=== PATIENT | female | born 1985 | race Caucasian/White ===

== ENCOUNTER → 2021-01-17 | Outpatient (CLI) | payer BC ==
[~2021-01-17] MED LIST: IBU600 MG PO; PERCOCET 325 MG1 TA2 PO; PRENATAL MVI
== END ==
LOC: ZCOL.LAB
DX: Z20.822 Contact with and (suspected) exposure to COVID-19 (principal)

== ENCOUNTER 2021-01-20 08:34 | Outpatient (CLI) | payer BC ==
[~2021-01-20] VITALS: Ht 170.2 cm; Wt 110.9 kg
--- NOTE | 2021-01-20 08:45 | NUR ---
Pt arrives on unit ambulatory with spouse. States LOF since 399 with intermittent ctx. Denies vaginal bleeding and reports GFM. Changed into clean gown. EFM and toco applied. Bedside US performed by Dr. Ching to confirm breech presentation. Breech presentation confirmed. Amniotest negative. SVE per this RN /-3. LAWRENCE. Dr. Ching remains on unit and notified. Orders to observe x1 hour and reassess. Admission assessment completed. Pt updated on POC. Bed locked in low position. Call light within reach. No questions or concerns at this time.
[2021-01-20] MEDS ORDERED: PRENATAL MVI (09:17)
[2021-01-20 09:50] VITALS: BP 143/92; PULSE 78; TEMP 97.7
[2021-01-20 10:04] VITALS: BP 138/90; PULSE 87
== END 2021-01-20 10:05 | disposition home or self-care (01) ==
LOC: LDRO 08:34
DX: O62.9 Abnormality of forces of labor, unspecified (principal); Z3A.36 36 weeks gestation of pregnancy

== ENCOUNTER 2021-01-20 18:59 | Inpatient (IN) | payer BC ==
[2021-01-20] VITALS (11 sets, daily range): BP systolic 119–140; BP diastolic 62–92; PULSE 90–103; TEMP 97.6
[~2021-01-20] VITALS: Ht 170.2 cm; Wt 110.9 kg
[~2021-01-20 18:59] MED LIST changes: -IBU600 MG PO; -PERCOCET 325 MG1 TA2 PO
[2021-01-20 21:38] LABS: BASO % 0.3 % (0.0-2.0); EOS # 0.1 (0.0-0.7); EOS % 0.8 % (0-4.0); GRAN # 7.3 (1.4-6.5); GRAN % 71.6 % (42.2-75.2); HEMOGLOBIN 11.9 g/dl (12.5-16.0); LYMPH # 2.1 (1.2-3.4); LYMPH % 20.5 % (20.0-51.0); MEAN CELL VOLUME 82 fl (80.0-100.0); MEAN CORPUSCULAR HEMOGLOBIN 27 pg (27.0-31.0); MEAN CORPUSCULAR HGB CONC 33 g/dl (33.0-37.0); MEAN PLATELET VOLUME 11.1 fl (7.4-10.4); MONO # 0.7 (0.1-0.6); MONO % 6.4 % (1.7-9.3); PLATELET COUNT 243 K/mm3 (130-400); RED BLOOD COUNT 4.43 M/mm3 (4.10-5.30); REDCELL DISTRIBUTION WIDTH-CV 15.4 % (11.5-14.5)
[2021-01-20 21:44] LABS: HEMATOCRIT 36.2 % (37.0-47.0)
[2021-01-21] VITALS (11 sets, daily range): BP systolic 119–139; BP diastolic 66–92; PULSE 72–90; TEMP 97.6–98.3
--- NOTE | 2021-01-21 09:54 | NUR ---
Initial visit; Parents thanked [employer] for offering congratulations and God's blessings for the of their daughter. [employer] thanked family for choosing [facility].
[2021-01-21 12:42] LABS: HEMOGLOBIN 10.3 g/dl (12.5-16.0)
[2021-01-21 12:43] LABS: HEMATOCRIT 31.2 % (37.0-47.0)
[2021-01-22] MEDS ORDERED: PERCOCET 325 MG1 TA2 PO (08:12)
[2021-01-22] MEDS ORDERED: IBU600 MG PO (08:12)
[2021-01-22 08:45] VITALS: BP 140/90; PULSE 90; TEMP 98
--- NOTE | 2021-01-22 14:38 | NUR ---
PATIENT REMOVED DRESSING AND SHOWER AND IV REMOVED. PATIENT THEN CALLED OUT STATING SHE HAD THROWN UP ABOUT AN HOUR AFTER PERCOCET WAS GIVEN, WHICH ALSO HAPPENED LAST NIGHT. DOCTOR SWITCHED HER TO [facility] TO TRY THAT
[2021-01-22 17:30] VITALS: BP 125/85; PULSE 87; TEMP 98.3
[2021-01-22 20:00] VITALS: BP 125/72; PULSE 84; TEMP 97.6
[2021-01-23 07:30] VITALS: BP 126/76; PULSE 86; TEMP 98.6
== END 2021-01-23 10:45 | disposition home or self-care (01) | DRG 788 ==
LOC: LDRO 18:59 → OB 21:22
PROVIDERS: Obstetrics & Gynecology; ADMIT Student in an Organized Health Care Education/Training Program
PROC: 10D00Z1 Extraction of Products of Conception, Low, Open Approach (ICD-10-PCS; principal; 2021-01-20)
DX: O32.1XX0 Maternal care for breech presentation, not applicable or unspecified (principal); Z3A.39 39 weeks gestation of pregnancy; Z37.0 Single live birth
CPT/HCPCS: J0690; J1885; J2175; J2270; J2370; J2405; J2590; J7120

== ENCOUNTER → 2021-01-31 | Outpatient (CLI) | payer BC ==
[~2021-01-31] MED LIST changes: +IBU600 MG PO; +PERCOCET 325 MG1 TA2 PO
--- NOTE | 2021-01-31 15:40 | NUR ---
Pt, Digna Bridges, presents for outpatient consult with 11 day old baby girl, Regis Bridges. She is accompanied by her spouse, Guillermo. Regis was born on [birth year] by c/secion for breech presentation. Her weight was 7#0.5oz (3190 gms). Regis was seen by Dr. Maya Mayers on 01/29/21 and reportedly weighed 7#3oz. Today Regis weighs 7#4.1oz (3292 gms). Pt reports 8+ feeding, qs voids and stools each day. Pt also have soreness to the nipples, the R > L. On the right side there is a small spot that seems to be healing. Pt advised on alingment of baby to breast and compression of the areola to get a deeper latch. ONce latch is accomplish, pt states it is more comfortable. After both sides Regis has a weight gain of 2.7oz (76 gms). Several new parent questions were address during the consultation. POC: Continue ad monalisa, allowing upto 4 hours at noc. As Regis continues to show feeding cues more spontaneously, go ad monalisa day and noc. F/U: As scheduled with Dr. Mayers. Questions invited and answered.
== END ==
LOC: LAC 10:20
DX: Z39.1 Encounter for care and examination of lactating mother (principal); Z71.89 Other specified counseling